=== PATIENT | female | born 1945 | race Asian ===

== ENCOUNTER → 2018-06-06 | Outpatient (CLI) | payer MEDICARE ==
[~2018-06-06] MED LIST: REGADENOSON 0.4 MG/5 ML SYR IV ONE; Z.0.CARVEDILOL3.125 PO; Z.0.CRESTOR20 MG PO; Z.4.AMLODIPINE-BEN1 PO
--- NOTE | 2018-06-07 13:09 | Cardiology Report ---
DATE OF STUDY: June 06, 2018 STRESS TEST PROCEDURE INDICATION: Chest pain. PROCEDURE PERFORMED: Single day rest and stress technetium and Lexiscan myocardial perfusion stress test. INTERPRETATION: At rest, heart rate was 93, blood pressure 138/82. Resting EKG shows normal sinus rhythm with left atrial enlargement and poor R-wave progression in precordial leads. After Lexiscan was administered, her heart rate barry to a peak of 107 beats per minute. Blood pressure increased to 156/65. There were no significant ST changes or arrhythmias throughout stress or recovery. Myocardial perfusion reveals severe fixed rest and stress perfusion defect of large size affecting the mid to apical anterior and all apical segments including septal inferior and lateral segments. Gated images demonstrate akinesis of the mid anterior and apical segments and overall moderate impairment in left ventricular systolic function with left ventricular ejection fraction estimated at 36%. CONCLUSION 1. Normal hemodynamic response to Lexiscan stress. 2. Normal electrocardiographic response to Lexiscan stress. 3. Abnormal myocardial perfusion with large-sized transmural scar affecting the mid anterior and all apical segments of LV myocardium. 4. Cardiomyopathy with [id number] impairment of left ventricular systolic function, left ventricular ejection fraction of 36% and akinesis of the mid anterior and apical segments. Job#: [id number] SERENE
== END ==
LOC: NM 10:21
PROVIDERS: ATTEND Internal Medicine Cardiovascular Disease
DX: R07.9 Chest pain, unspecified (principal); R00.2 Palpitations
CPT/HCPCS: 78452; 93017; A9502